=== PATIENT | male | born 1990 | race Two or more races ===

== ENCOUNTER → 2016-06-12 | Outpatient (CLI) | payer OTHER ==
--- NOTE | 2016-06-12 12:01 | REP ---
Clinical: Left hip pain. Technique: Neutral and frog lateral views. Findings: Osseous structures, joint spaces, and surrounding soft tissues appear relatively normal for age. No obvious congenital or arthritic degenerative changes are appreciated. No periarticular calcifications are identified. Impression: Essentially normal left hip radiographs. If the patient remains symptomatic consider MRI for further investigation. Signed by Parth Braun MD 06/12/2016 11:52 A
== END ==
LOC: M LRY 11:19
PROVIDERS: ATTEND Physician Assistant
DX: M25.552 Pain in left hip (principal)